=== PATIENT | female | born 1950 ===

== ENCOUNTER 2016-12-10 14:38 | Inpatient (IN) | payer MEDICARE ==
[2016-12-10 14:38] VITALS: BMI 28.7
[2016-12-10] MEDS ORDERED: Iohexol 240 (50 ml) ONE (15:36)
--- NOTE | 2016-12-10 15:38 | ED PDOC ---
HPI: Abdomen Time Seen by Provider: 12/10/16 15:09 Chief Complaint (Nursing): Abdominal Pain Chief Complaint (Provider): Abdominal Pain History Per: Patient History/Exam Limitations: no limitations Onset/Duration Of Symptoms: Hrs Current Symptoms Are (Timing): Still Present Severity: Moderate Location Of Pain/Discomfort: LLQ Quality Of Discomfort: "Pain" Associated Symptoms: denies: Fever, Chills, Nausea, Vomiting, Urinary Symptoms Exacerbating Factors: None Additional Complaint(s): Patient is a 66 year old female who was referred to ED by PMD for evaluation of severe LLQ pain. Patient reports abdominal pain that began last night, described as constant with no nausea, vomiting or diarrhea. Patient also reports 5 days og chest congestion with cough but denies fever, back pain, chills or hemoptysis. Past Medical History Reviewed: Historical Data, Nursing Documentation, Vital Signs Vital Signs: Last Vital Signs Temp 97.8 F 12/10/16 21:44 Pulse 72 12/10/16 23:56 Resp 18 12/10/16 22:00 BP 132/74 12/10/16 23:56 Pulse Ox 92 L 12/10/16 22:00 - Medical History PMH: Anemia, Asthma, CAD, Diabetes, HTN, Hypercholesterolemia - Surgical History Surgical History: Appendectomy, CABG Other surgeries: colostomy with reversal - Family History Family History: States: Unknown Family Hx - Living Arrangements Living Arrangements: With Family - Immunization History Hx Tetanus Toxoid Vaccination: Yes Hx Influenza Vaccination: Yes Hx Pneumococcal Vaccination: Yes - Home Medications Home Medications: Ambulatory Orders Medication Instructions Recorded Aspirin. 81 mg PO DAILY 04/05/13 Carvedilol. 25 mg PO BID 04/05/13 Calcium Acetate 3 cap PO TID 04/17/13 Fenofibrate [Tricor] 145 mg PO DAILY 04/17/13 Iron,Carbonyl/Ascorbic Acid [Iron 1 tab PO DAILY 04/17/13 100 with Vitamin C 250 mg-25 Mcg-1 mg-10] Pantoprazole [Protonix] 40 mg PO DAILY 04/17/13 Albuterol Sulfate [Albuterol 2 puff IH QID #1 inh 11/27/13 Sulfate Hfa] Crestor 5 mg PO DAILY 11/27/13 Humalog Mix 75/25 75 U/ml-25 U/ml 25 units SC [facility] 11/27/13 10 ml Proair Hfa 1 puff IH DAILY 11/27/13 Zolpidem 10 mg PO HS 11/27/13 humALOG 10 units SC HS 11/27/13 Benzonatate [Tessalon Perles] 100 mg PO TID #30 sgl 12/07/16 Prednisone 50 mg PO DAILY #5 tablet 12/07/16 - Allergies Allergies/Adverse Reactions: Allergies Allergy/AdvReac Type Severity Reaction Status Date / Time No Known Allergies Allergy Unverified 11/19/15 15:45 Review of Systems ROS Statement: Except As Marked, All Systems Reviewed And Found Negative Constitutional: Negative for: Fever, Chills ENT: Negative for: Ear Pain, Throat Pain Cardiovascular: Negative for: Chest Pain Respiratory: Positive for: Cough Gastrointestinal: Positive for: Abdominal Pain. Negative for: Nausea, Vomiting , Diarrhea Genitourinary Female: Negative for: Dysuria, Frequency, Hematuria Musculoskeletal: Negative for: Neck Pain, Back Pain Neurological: Negative for: Weakness, Numbness Physical Exam - Reviewed Nursing Documentation Reviewed: Yes Vital Signs Reviewed: Yes - Physical Exam Appears: Positive for: Non-toxic, No Acute Distress Skin: Positive for: Normal Color, Warm Eye Exam: Positive for: Normal appearance Neck: Positive for: Normal, Painless ROM Cardiovascular/Chest: Positive for: Regular Rate, Rhythm, Other (Surgical scars) . Negative for: Murmur Respiratory: Positive for: Other (Coarse breath sounds bilaterally ). Negative for: Decreased Breath Sounds, Wheezing, Respiratory Distress Gastrointestinal/Abdominal: Positive for: Soft, Tenderness (significant LLQ). Negative for: Distended, Guarding, Rebound Back: Positive for: Normal Inspection. Negative for: L CVA Tenderness, R CVA Tenderness Extremity: Positive for: Normal ROM. Negative for: Pedal Edema Neurologic/Psych: Positive for: Alert, Oriented. Negative for: Motor/Sensory Deficits - Laboratory Results Result Diagrams: 12/10/16 15:40 12/10/16 15:40 - ECG ECG: Positive for: Interpreted By Me, Viewed By Me ECG Rhythm: Positive for: Normal QRS, Sinus Rhythm, ST/T Changes (TWI in anterolateral leads) O2 Sat by Pulse Oximetry: 95 (RA) Pulse Ox Interpretation: Normal Medical Decision Making Medical Decision Making: Time: 15:30 Initial impression: Abdominal apian r/o diverticulitis vs. colitis vs. SBO vs. UTI and renal stone Initial plan: -- CT-abdomen -- EKG -- CMP -- Lipase -- Urine dip -- CBC -- PT/PTT -- CXR -- Morphine and Zofran 18:56 CT Scan A/P Findings FINDINGS: LOWER THORAX: Unremarkable. LIVER: Hepatic steatosis. No focal masses. No intrahepatic bile duct dilatation or perihepatic ascites. GALLBLADDER AND BILE DUCTS: Unremarkable. PANCREAS: Mildly atrophic pancreas, dilated pancreatic duct. No focal mass identified. SPLEEN: Top-normal spleen measuring 9.6 x 12.9 cm. ADRENALS: Unremarkable. No mass. KIDNEYS AND URETERS: Atrophic kidneys bilaterally. Nonobstructing calculi left kidney. VASCULATURE: Unremarkable. No aortic aneurysm. BOWEL: Ventral periumbilical hernia containing loops of small bowel without evidence of proximal obstruction or incarceration. APPENDIX: Surgical clips base of cecum consistent with prior appendectomy. PERITONEUM: Unremarkable. No free fluid. No free air. LYMPH NODES: Unremarkable. No enlarged lymph nodes. BLADDER: Unremarkable. REPRODUCTIVE: Fibroid uterus. BONES: No acute fracture. OTHER FINDINGS: Left anterior abdominal wall, rectus muscle hematoma. This measures 6.3 x 6.7 by 2.1 cm. This is contained within the rectus muscle. Inflammatory changes abdominal wall may represent a component of panniculitis. IMPRESSION: 1. Anterior abdominal wall/ rectus muscle hematoma left side only. No evidence of extension into the peritoneal cavity. 2. Midline periumbilical hernia containing nondistended or incarcerated loops of small bowel. 3. Renal calculus disease bilaterally nonobstructing left more numerous and larger than right. 4. Atrophic pancreas common dilated pancreatic duct without focal mass. Communication of results: I discussed the findings directly with the attending in the emergency department at the time of this interpretation. 1900 Discussed the case with Dr Rod who will be on consult and recommends admission for monitoring and no interventions at this time. 1909 Discussed with certified surgical first assistant to see patient in ED. Scribe Attestation: Documented by Rochelle Lai acting as a scribe for Lily Rico MD. MD [place] Attestation: All medical record entries made by the Scribe were at my direction and personally dictated by me. I have reviewed the chart and agree that the record accurately reflects my personal performance of the history, physical exam, medical decision making, and the department course for this patient. I have also personally directed, reviewed, and agree with the discharge instructions and disposition. Disposition - Clinical Impression Clinical Impression: Abdominal wall hematoma, Rectus sheath hematoma - Patient ED Disposition Is Patient to be Admitted: Yes Discussed With : Mark Levin Doctor Will See Patient In The: Hospital - Disposition Disposition Time: 19:00 Condition: FAIR - Pt Status Changed To: Hospital Disposition Of: Inpatient - Admit Certification Admit to Inpatient:: After my assessment, the patient will require hospitalization for at least two midnights. This is because of the severity of symptoms shown, intensity of services needed, and/or the medical risk in this patient being treated as an outpatient. - POA Present On Arrival: Poor Glycemic Control
[2016-12-10] MEDS: Iohexol 240 (50 ml) PO ONE ×2 (15:42→16:09)
[2016-12-10 15:54] LABS: BASO % 0.4 % (0.0-2.0); EOS % 0.3 % (0.0-4.0); HEMATOCRIT 24.8 % (34.0-47.0); LYMPH % 16.6 % (20.0-40.0); MEAN CELL VOLUME 101.7 fl (81.0-99.0); MEAN CORPUSCULAR HEMOGLOBIN 34.3 pg (27.0-31.0); MEAN CORPUSCULAR HGB CONC 33.7 g/dL (33.0-37.0); MEAN PLATELET VOLUME 9.2 fl (7.2-11.7); MONO # 0.5 K/uL (0.0-0.8); MONO % 8.1 % (0.0-10.0); NEUT # 4.5 K/uL (1.8-7.0); NEUT % 74.6 % (50.0-75.0); NRBC % 0.2 % (0.0-0.0); RED CELL DISTRIBUTION WIDTH 14.9 % (11.5-14.5); WHITE BLOOD COUNT 6.1 K/uL (4.8-10.8)
[2016-12-10 16:00] LABS: ALB/GLOB RATIO 1.1 (1.0-2.1); BILIRUBIN,TOTAL 1.1 mg/dl (0.2-1.3); CALCIUM 9.2 mg/dL (8.4-10.2); POTASSIUM 4.1 MMOL/L (3.6-5.0)
[2016-12-10 16:26] LABS: PARTIAL THROMBOPLASTIN TIME 26.4 SECONDS (23.3-32.5)
[2016-12-10] MEDS ORDERED: Sodium Chloride 0.9% 50 ML IV ONE (17:50)
[2016-12-10] MEDS ORDERED: Iodixanol 320 MG/ML 100 ML BOTTLE IV ONE (17:50)
--- NOTE | 2016-12-10 18:39 | CT ---
PROCEDURE: CT Abdomen and Pelvis with contrast HISTORY: Left lower quadrant pain. Recent onset. COMPARISON: None. TECHNIQUE: Contrast dose: 50 cc 6 50 cc Visipaque 320 Radiation dose: Total exam DLP = 914.62 mGy-cm. This CT exam was performed using one or more of the following dose reduction techniques: Automated exposure control, adjustment of the mA and/or kV according to patient size, and/or use of iterative reconstruction technique. FINDINGS: LOWER THORAX: Unremarkable. LIVER: Hepatic steatosis. No focal masses. No intrahepatic bile duct dilatation or perihepatic ascites. GALLBLADDER AND BILE DUCTS: Unremarkable. PANCREAS: Mildly atrophic pancreas, dilated pancreatic duct. No focal mass identified. SPLEEN: Top-normal spleen measuring 9.6 x 12.9 cm. ADRENALS: Unremarkable. No mass. KIDNEYS AND URETERS: Atrophic kidneys bilaterally. Nonobstructing calculi left kidney. VASCULATURE: Unremarkable. No aortic aneurysm. BOWEL: Ventral periumbilical hernia containing loops of small bowel without evidence of proximal obstruction or incarceration. APPENDIX: Surgical clips base of cecum consistent with prior appendectomy. PERITONEUM: Unremarkable. No free fluid. No free air. LYMPH NODES: Unremarkable. No enlarged lymph nodes. BLADDER: Unremarkable. REPRODUCTIVE: Fibroid uterus. BONES: No acute fracture. OTHER FINDINGS: Left anterior abdominal wall, rectus muscle hematoma. This measures 6.3 x 6.7 by 2.1 cm. This is contained within the rectus muscle. Inflammatory changes abdominal wall may represent a component of panniculitis. IMPRESSION: 1. Anterior abdominal wall/ rectus muscle hematoma left side only. No evidence of extension into the peritoneal cavity. 2. Midline periumbilical hernia containing nondistended or incarcerated loops of small bowel. 3. Renal calculus disease bilaterally nonobstructing left more numerous and larger than right. 4. Atrophic pancreas common dilated pancreatic duct without focal mass. Communication of results: I discussed the findings directly with the attending in the emergency department at the time of this interpretation.
--- NOTE | 2016-12-10 22:12 | CP.PCM.CON ---
<Martin Self - Last Filed: 12/10/16 22:00> History of Present Illness - History of Present Illness History of Present Illness: General Surgery Consult Re: Abdominal wall hematoma HPI: 66F presented to ED C/O L abdominal pain that began last night. Pain was constant and intense. She had never had this pain before. Reports she has been coughing with clear sputum x 3 days. Denies F/C, N/V/D/C, SOB, Chest pain. Denies any trauma. Pt is on TTS dialysis. She takes one baby aspirin/day, and no other oral anticoagulant. Currently she feels better with only mild pain. PMH: ESRD on HD, CAD, DM, HTN, HLD, asthma, anemia PSH: Appendectomy, CABG, colectomy, LUE AVF creation SH: No tobacco, EtOH, or street drugs. All: NKDA Meds: See MAR, ASA, no other anticoagulants Review of Systems - Review of Systems All systems: reviewed and no additional remarkable complaints except (as per HPI ) Past Patient History - Infectious Disease Hx of Infectious Diseases: None - Past Social History Smoking Status: Never Smoked - CARDIAC Hx Hypercholesterolemia: Yes Hx Hypertension: Yes - PULMONARY Hx Asthma: Yes - RENAL Hx Dialysis: Yes ([facility]) Type of Dialysis Access: left upper arm shunt Date of Last Dialysis Treatment: 12/08/16 - ENDOCRINE/METABOLIC Hx Diabetes Mellitus Type 2: Yes - HEMATOLOGICAL/ONCOLOGICAL Hx Anemia: Yes - GASTROINTESTINAL Hx Colostomy: Yes - PSYCHIATRIC Hx Substance Use: No - SURGICAL HISTORY Hx Appendectomy: Yes Hx Coronary Artery Bypass Graft: Yes Meds Allergies/Adverse Reactions: Allergies Allergy/AdvReac Type Severity Reaction Status Date / Time No Known Allergies Allergy Unverified 11/19/15 15:45 - Medications Medications: Current Medications Aspirin (Aspirin) 325 mg PO STAT STA Stop: 12/10/16 21:08 Last Admin: 12/10/16 21:16 Dose: 325 mg Physical Exam - Constitutional Appears: Non-toxic, No Acute Distress - Head Exam Head Exam: ATRAUMATIC, NORMOCEPHALIC - Eye Exam Eye Exam: EOMI. absent: Scleral icterus - ENT Exam ENT Exam: Mucous Membranes Moist Additional comments: trachea midline - Respiratory Exam Respiratory Exam: NORMAL BREATHING PATTERN. absent: Respiratory Distress - Cardiovascular Exam Cardiovascular Exam: RRR, +S1, +S2 - GI/Abdominal Exam GI & Abdominal Exam: Firm (in LLQ), Guarding (LLQ), Hernia (periumbilical and low incisional hernias), Soft, Tenderness (in LLQ). absent: Distended, Rebound , Rigid Additional comments: Midline Colectomy scar - Rectal Exam Rectal Exam: Deferred - Extremities Exam Extremities exam: Positive for: normal capillary refill. Negative for: calf tenderness - Back Exam Back exam: absent: CVA tenderness (L), CVA tenderness (R) - Neurological Exam Neurological exam: Alert, Oriented x3 - Psychiatric Exam Psychiatric exam: Normal Affect, Normal Mood - Skin Skin Exam: Dry, Warm Results - Vital Signs Recent Vital Signs: Last Vital Signs Temp 97.8 F 12/10/16 21:44 Pulse 70 12/10/16 21:44 Resp 20 12/10/16 21:44 BP 132/69 12/10/16 21:44 Pulse Ox 92 L 12/10/16 21:44 - Labs Result Diagrams: 12/10/16 15:40 12/10/16 15:40 Labs: Laboratory Results - last 24 hr 12/10/16 20:37 Troponin I 0.4420 H* - Imaging and Cardiology CT scan - abdomen Status: Image reviewed by me, Report reviewed by me Assessment & Plan - Assessment and Plan (Free Text) Assessment: 66F with L abdominal wall hematoma Plan: AM labs, Monitor H&H CCD diet Hold anticoagulants/antiplatelets Analgesia D/W Dr. Viola Self PGY3 <Sebas Rod - Last Filed: 12/11/16 10:24> History of Present Illness - History of Present Illness History of Present Illness: Patient was seen and examined at the bedside. Agree with resident's note above. Meds - Medications Medications: Current Medications Albuterol/Ipratropium (Duoneb 3 Mg/0.5 Mg (3 Ml) Ud) 3 ml INH RQID [facility] Last Admin: 12/11/16 07:58 Dose: 3 ml Atorvastatin Calcium (Lipitor) 10 mg PO DAILY [facility] Last Admin: 12/11/16 09:55 Dose: 10 mg Calcium Acetate (Phoslo) 667 mg PO WM [facility] Last Admin: 12/11/16 08:30 Dose: 667 mg Carvedilol (Coreg) 25 mg PO BID [facility] Last Admin: 12/11/16 09:55 Dose: Not Given Docusate Sodium (Colace) 100 mg PO BID [facility] Last Admin: 12/11/16 09:55 Dose: 100 mg Fenofibrate (Tricor) 48 mg PO DAILY [facility] Last Admin: 12/11/16 10:00 Dose: 48 mg Insulin Human Lispro (Humalog) 10 units SC [facility] Last Admin: 12/10/16 23:53 Dose: 10 u Insulin Human Regular (Humulin R) 0 units SC [facility] PRN Reason: Protocol Insulin Lispro Protam/Lispro Human (Humalog Mix 75/25) 25 units SC BID@0730, 2200 [facility] Last Admin: 12/11/16 06:35 Dose: 25 units Morphine Sulfate (Morphine) 2 mg IVP Q4 PRN PRN Reason: Pain, moderate (4-7) Morphine Sulfate (Morphine) 4 mg IVP Q4 PRN PRN Reason: Pain, severe (8-10) Ondansetron HCl (Zofran Inj) 4 mg IVP Q4 PRN PRN Reason: Nausea/Vomiting Oxycodone/Acetaminophen (Percocet 5/325 Mg Tab) 1 tab PO Q4 PRN PRN Reason: Pain, moderate (4-7) Stop: 12/14/16 09:14 Pantoprazole Sodium (Protonix Ec Tab) 40 mg PO DAILY [facility] Last Admin: 12/11/16 10:00 Dose: 40 mg Promethazine HCl (Phenergan Syrup) 12.5 mg PO Q4 [facility] Last Admin: 12/11/16 10:00 Dose: 12.5 mg Zolpidem Tartrate (Ambien) 5 mg PO [facility] Last Admin: 12/10/16 23:58 Dose: 5 mg Results - Vital Signs Recent Vital Signs: Last Vital Signs Temp 97.8 F 12/11/16 09:00 Pulse 75 12/11/16 09:00 Resp 20 12/11/16 09:00 BP 153/64 H 12/11/16 09:00 Pulse Ox 94 L 12/11/16 09:00 - Labs Result Diagrams: 12/11/16 05:45 12/11/16 05:45 Labs: Laboratory Results - last 24 hr 12/10/16 12/10/16 12/11/16 20:37 22:20 05:27 WBC RBC Hgb Hct MCV MCH MCHC RDW Plt Count Sodium Potassium Chloride Carbon Dioxide Anion Gap BUN Creatinine Est GFR ( Amer) Est GFR (Non-Af Amer) POC Glucose (mg/dL) 188 H 343 H Random Glucose Calcium Troponin I 0.4420 H* Triglycerides Cholesterol LDL Cholesterol Direct HDL Cholesterol 12/11/16 05:45 WBC 6.8 RBC 2.60 L Hgb 8.8 L Hct 26.7 L MCV 102.7 H MCH 34.1 H MCHC 33.2 RDW 14.9 H Plt Count 136 Sodium 138 Potassium 4.9 Chloride 92 L Carbon Dioxide 28 Anion Gap 23 H BUN 66 H Creatinine 7.8 H* Est GFR ( Amer) 6 Est GFR (Non-Af Amer) 5 POC Glucose (mg/dL) Random Glucose 307 H Calcium 9.0 Troponin I 0.3320 H* Triglycerides 98 Cholesterol 93 LDL Cholesterol Direct 35 HDL Cholesterol 31 - Imaging and Cardiology CT scan - abdomen Status: Image reviewed by me, Report reviewed by me Assessment & Plan - Assessment and Plan (Free Text) Assessment: 66 y.o. female with left rectus hematoma Plan: - Continue diet - Pain control - Monitor Hb/Hct - Hold anticoagulation - No general surgery intervention at present time - Will follow
[2016-12-10] MEDS ORDERED: HUMALOG 10 UNIT SC SCH (22:45)
[2016-12-10] MEDS ORDERED: ZOLPIDEM 10 MG PO SCH (22:45)
[2016-12-10] MEDS: Insulin Lispro (humaLOG) 100 Units/ml Inj SC SCH (23:53)
[2016-12-11] MEDS: Albuterol-Ipratrop 3 mg / 0.5 (3 ml) UD INH SCH ×5 (01:01→20:10)
[2016-12-11 06:26] LABS: HEMATOCRIT 26.7 % (34.0-47.0); MEAN CELL VOLUME 102.7 fl (81.0-99.0); MEAN CORPUSCULAR HEMOGLOBIN 34.1 pg (27.0-31.0); MEAN CORPUSCULAR HGB CONC 33.2 g/dL (33.0-37.0); RED CELL DISTRIBUTION WIDTH 14.9 % (11.5-14.5); WHITE BLOOD COUNT 6.8 K/uL (4.8-10.8)
[2016-12-11] MEDS: Insulin Lispro Mix 75/25 100 units/ml (HumaLog) 10ml SC SCH ×2 (06:35→22:05)
[2016-12-11 06:36] LABS: POTASSIUM 4.9 MMOL/L (3.6-5.0)
[2016-12-11 06:59] LABS: TROPONIN I 0.332 ng/mL (0.00-0.120)
--- NOTE | 2016-12-11 08:37 | CP.PCM.PN ---
<Ira Miles - Last Filed: 12/11/16 08:33> Subjective - Date & Time of Evaluation Date of Evaluation: 12/11/16 Time of Evaluation: 08:33 - Subjective Subjective: General Surgery - Dr. Rod Pt [place]. Pt states her abdominal pain is improved. No N/V, F/C. She still has some cough, no SOB. Objective - Vital Signs/Intake and Output Vital Signs (last 24 hours): Temp Pulse Resp BP Pulse Ox 97.8 F 71 18 152/73 H 96 12/11/16 05:00 12/11/16 05:00 12/11/16 05:00 12/11/16 05:00 12/11/16 05:00 - Medications Medications: Current Medications Albuterol/Ipratropium (Duoneb 3 Mg/0.5 Mg (3 Ml) Ud) 3 ml INH RQID [facility] Last Admin: 12/11/16 07:58 Dose: 3 ml Atorvastatin Calcium (Lipitor) 10 mg PO DAILY [facility] Calcium Acetate (Phoslo) 667 mg PO WM [facility] Carvedilol (Coreg) 25 mg PO BID [facility] Last Admin: 12/10/16 23:56 Dose: 25 mg Docusate Sodium (Colace) 100 mg PO BID [facility] Fenofibrate (Tricor) 48 mg PO DAILY [facility] Insulin Human Lispro (Humalog) 10 units SC [facility] Last Admin: 12/10/16 23:53 Dose: 10 u Insulin Human Regular (Humulin R) 0 units SC [facility] PRN Reason: Protocol Insulin Lispro Protam/Lispro Human (Humalog Mix 75/25) 25 units SC BID@0730, 2200 [facility] Last Admin: 12/11/16 06:35 Dose: 25 units Morphine Sulfate (Morphine) 2 mg IVP Q4 PRN PRN Reason: Pain, moderate (4-7) Morphine Sulfate (Morphine) 4 mg IVP Q4 PRN PRN Reason: Pain, severe (8-10) Ondansetron HCl (Zofran Inj) 4 mg IVP Q4 PRN PRN Reason: Nausea/Vomiting Pantoprazole Sodium (Protonix Ec Tab) 40 mg PO DAILY [facility] Promethazine HCl (Phenergan Syrup) 12.5 mg PO Q4 [facility] Zolpidem Tartrate (Ambien) 5 mg PO HS [facility] Last Admin: 12/10/16 23:58 Dose: 5 mg - Labs Labs: 12/11/16 05:45 12/11/16 05:45 PT 13.5 SECONDS (9.6-11.2) H 12/10/16 15:50 INR 1.30 (0.92-1.08) H 12/10/16 15:50 APTT 26.4 SECONDS (23.3-32.5) 12/10/16 15:50 - Constitutional Appears: No Acute Distress - Head Exam Head Exam: ATRAUMATIC, NORMOCEPHALIC - Respiratory Exam Respiratory Exam: NORMAL BREATHING PATTERN. absent: Respiratory Distress - GI/Abdominal Exam GI & Abdominal Exam: Soft, Tenderness (mild ttp L mid abdomen). absent: Distended, Firm, Guarding, Rebound - Neurological Exam Neurological Exam: Alert, Oriented x3 - Psychiatric Exam Psychiatric exam: Normal Affect, Normal Mood - Skin Skin Exam: Dry, Intact Assessment and Plan - Assessment and Plan (Free Text) Assessment: 66F with L abdominal wall hematoma Plan: -Hgb stable this morning, 8.8 from 8.4 yest. -Continue to hold anticoagulants/antiplatelets -No plans for surgical intervention -Dialysis today -Medical management DW Dr Viola Miles PGY2 <Sebas Rod - Last Filed: 12/11/16 10:27> Subjective - Date & Time of Evaluation Date of Evaluation: 12/11/16 Time of Evaluation: 09:50 - Subjective Subjective: Patient was seen and examined at the bedside. Agree with resident's note above Objective - Vital Signs/Intake and Output Vital Signs (last 24 hours): Temp Pulse Resp BP Pulse Ox 97.8 F 75 20 153/64 H 94 L 12/11/16 09:00 12/11/16 09:00 12/11/16 09:00 12/11/16 09:00 12/11/16 09:00 - Medications Medications: Current Medications Albuterol/Ipratropium (Duoneb 3 Mg/0.5 Mg (3 Ml) Ud) 3 ml INH RQID [facility] Last Admin: 12/11/16 07:58 Dose: 3 ml Atorvastatin Calcium (Lipitor) 10 mg PO DAILY [facility] Last Admin: 12/11/16 09:55 Dose: 10 mg Calcium Acetate (Phoslo) 667 mg PO WM [facility] Last Admin: 12/11/16 08:30 Dose: 667 mg Carvedilol (Coreg) 25 mg PO BID [facility] Last Admin: 12/11/16 09:55 Dose: Not Given Docusate Sodium (Colace) 100 mg PO BID [facility] Last Admin: 12/11/16 09:55 Dose: 100 mg Fenofibrate (Tricor) 48 mg PO DAILY [facility] Last Admin: 12/11/16 10:00 Dose: 48 mg Insulin Human Lispro (Humalog) 10 units SC [facility] Last Admin: 12/10/16 23:53 Dose: 10 u Insulin Human Regular (Humulin R) 0 units SC [facility] PRN Reason: Protocol Insulin Lispro Protam/Lispro Human (Humalog Mix 75/25) 25 units SC BID@0730, 2200 [facility] Last Admin: 12/11/16 06:35 Dose: 25 units Morphine Sulfate (Morphine) 2 mg IVP Q4 PRN PRN Reason: Pain, moderate (4-7) Morphine Sulfate (Morphine) 4 mg IVP Q4 PRN PRN Reason: Pain, severe (8-10) Ondansetron HCl (Zofran Inj) 4 mg IVP Q4 PRN PRN Reason: Nausea/Vomiting Oxycodone/Acetaminophen (Percocet 5/325 Mg Tab) 1 tab PO Q4 PRN PRN Reason: Pain, moderate (4-7) Stop: 12/14/16 09:14 Pantoprazole Sodium (Protonix Ec Tab) 40 mg PO DAILY [facility] Last Admin: 12/11/16 10:00 Dose: 40 mg Promethazine HCl (Phenergan Syrup) 12.5 mg PO Q4 [facility] Last Admin: 12/11/16 10:00 Dose: 12.5 mg Zolpidem Tartrate (Ambien) 5 mg PO [facility] Last Admin: 12/10/16 23:58 Dose: 5 mg - Labs Labs: 12/11/16 05:45 12/11/16 05:45 PT 13.5 SECONDS (9.6-11.2) H 12/10/16 15:50 INR 1.30 (0.92-1.08) H 12/10/16 15:50 APTT 26.4 SECONDS (23.3-32.5) 12/10/16 15:50
--- NOTE | 2016-12-11 08:48 | HP ---
The patient is a 66-year-old female who was admitted via the Emergency Room after she showed up in th e office complaining of left lower abdominal pain for 2 days prior to presentation. She indicated th at she was not able to sleep because of severe abdominal pain. She had been to [facility] Room indicating that she was discharged, but still continues to have pain. PAST MEDICAL HISTORY: Remarkable for end-stage renal disease requiring hemodialysis, asthma, coronar y artery disease, hypertension and diabetes mellitus. FAMILY HISTORY: Nonrevealing. SOCIAL HISTORY: She does not smoke or drink and lives at home with her children. REVIEW OF SYSTEMS: Remarkable for occasional swelling of the legs, shortness of breath with wheezing . MEDICATIONS: As per medication reconciliation sheet. PHYSICAL EXAMINATION: GENERAL: The patient is alert and oriented, appears to be in moderate distress because of abdominal pain. VITAL SIGNS: Blood pressure 152/73, pulse of 71, respiratory rate 18. She is afebrile. O2 sat 96% on room air. SKIN: Shows fair turgor. HEENT: Pupils equal, reactive to light and accommodation. Mouth shows fair hygiene. NECK: JVP flat. LUNGS: Fair aeration with mild wheezing and a few basilar rales. HEART: S1, S2. ABDOMEN: Severe left lower quadrant tenderness with edema and rebound. No organomegaly appreciated. EXTREMITIES: Shows 1+ pitting pedal edema. CENTRAL NERVOUS SYSTEM: Grossly intact. RECTAL AND GENITALIA: Deferred. LABORATORY DATA: Remarkable for WBC of 6.1, hemoglobin 8.4, platelet count 133,000. PT 13.5, INR 1. 3. Sodium 137, potassium 4.1, BUN of 57, creatinine 6.5. Troponin 0.4420. CT scan of abdomen and pelvis is remarkable for anterior abdominal wall rectus muscle hematoma, left side. No evidence of extension into the peritoneal cavity. Midline periumbilical hernia containing nondistended or incarcerated loops of small bowel. Renal calculus disease bilaterally, nonobstructiv e. Atrophic pancreas, common dilated pancreatic duct without focal mass. Chest x-ray official repor t is pending. Electrocardiogram done; official report is also pending. IMPRESSION: Left-sided rectus sheath hematoma with severe abdominal pain. This is probably secondar y to subcutaneous heparin injections during dialysis. Diabetes mellitus with hyperglycemia, poorly c ontrolled; asthma with mild exacerbation, hypertension. Coronary artery disease with elevated tropon in. This is probably secondary to renal failure, but one has to rule out acute coronary syndrome. PLAN: Nephrology evaluation for dialysis. Hold all anticoagulation for now. Monitor H and H. Card iac evaluation due to elevated troponin to rule out acute coronary syndrome. Surgical evaluation reg arding rectus sheath hematoma. Will monitor H and H. If clinically stable and cleared by all consul tants, will probably discharge home in 24-48 hours and follow up as an outpatient. Mark Levin MD cc: 62 TT: 12/11/2016 08:47:41 mn
[2016-12-11] MEDS ORDERED: CRESTOR 5 MG PO SCH (09:00)
[2016-12-11] MEDS ORDERED: INSULIN LISPRO SC SCH (09:00)
[2016-12-11] MEDS ORDERED: INSULIN LISPRO PROTAMINE SC SCH (09:00)
[2016-12-11] MEDS ORDERED: [UNRECOGNIZED DRUG - OTHER] SC SCH (09:00)
[2016-12-11] MEDS ORDERED: CALCIUM ACETATE PO SCH (09:00)
[2016-12-11] MEDS ORDERED: CARVEDILOL 25 MG PO SCH (09:00)
[2016-12-11] MEDS ORDERED: Oxycodone/Acetaminophen 5/325 mg Tab PO PRN (09:13)
[2016-12-11] MEDS: Pantoprazole 40 mg EC Tab PO SCH (10:00)
[2016-12-11] MEDS: Promethazine 12.5 mg/10 ml Syrup PO SCH ×4 (10:00→21:55)
--- NOTE | 2016-12-11 10:23 | RAD ---
PROCEDURE: CHEST RADIOGRAPH, 1 VIEW HISTORY: congestion COMPARISON: None available. FINDINGS: LUNGS: Clear. PLEURA: No pneumothorax or pleural fluid seen. CARDIOVASCULAR: Cardiomegaly. No evidence of acute, significant cardiovascular disease. OSSEOUS STRUCTURES: No significant abnormalities. VISUALIZED UPPER ABDOMEN: Normal. OTHER FINDINGS: None. IMPRESSION: No active disease.
--- NOTE | 2016-12-11 10:52 | CP.PCM.CON ---
History of Present Illness - History of Present Illness History of Present Illness: pt seen and examined, full consult is dictated #[id number] 1. esrd, continue hd 3 x a week tts 2. LLQ pain, 3. htn 4. dm 5. cad 6. anemia 7. ant. abd wall / rectus muscle hematoma for hd today consent obtained from pt Past Patient History - Infectious Disease Hx of Infectious Diseases: None - Past Medical History & Family History Past Medical History?: Yes - Past Social History Smoking Status: Never Smoked - CARDIAC Hx Cardiac Disorders: Yes - PULMONARY Hx Respiratory Disorders: Yes - NEUROLOGICAL Hx Neurological Disorder: No - HEENT Hx HEENT Problems: No - RENAL Hx Chronic Kidney Disease: Yes - ENDOCRINE/METABOLIC Hx Endocrine Disorders: Yes - HEMATOLOGICAL/ONCOLOGICAL Hx Blood Disorders: No - INTEGUMENTARY Hx Dermatological Problems: No - MUSCULOSKELETAL/RHEUMATOLOGICAL Hx Musculoskeletal Disorders: No - GASTROINTESTINAL Hx Colostomy: Yes - GENITOURINARY/GYNECOLOGICAL Hx Genitourinary Disorders: No - PSYCHIATRIC Hx Psychophysiologic Disorder: No - SURGICAL HISTORY Hx Appendectomy: Yes Hx Coronary Artery Bypass Graft: Yes - ANESTHESIA Hx Anesthesia: Yes Hx Anesthesia Reactions: No Meds Allergies/Adverse Reactions: Allergies Allergy/AdvReac Type Severity Reaction Status Date / Time No Known Allergies Allergy Unverified 11/19/15 15:45 - Medications Medications: Current Medications Albuterol/Ipratropium (Duoneb 3 Mg/0.5 Mg (3 Ml) Ud) 3 ml INH RQID [facility] Last Admin: 12/11/16 07:58 Dose: 3 ml Atorvastatin Calcium (Lipitor) 10 mg PO DAILY [facility] Last Admin: 12/11/16 09:55 Dose: 10 mg Calcium Acetate (Phoslo) 667 mg PO WM [facility] Last Admin: 12/11/16 08:30 Dose: 667 mg Carvedilol (Coreg) 25 mg PO BID [facility] Last Admin: 12/11/16 09:55 Dose: Not Given Docusate Sodium (Colace) 100 mg PO BID [facility] Last Admin: 12/11/16 09:55 Dose: 100 mg Fenofibrate (Tricor) 48 mg PO DAILY [facility] Last Admin: 12/11/16 10:00 Dose: 48 mg Insulin Human Lispro (Humalog) 10 units SC [facility] Last Admin: 12/10/16 23:53 Dose: 10 u Insulin Human Regular (Humulin R) 0 units SC [facility] PRN Reason: Protocol Insulin Lispro Protam/Lispro Human (Humalog Mix 75/25) 25 units SC BID@0730, 2200 [facility] Last Admin: 12/11/16 06:35 Dose: 25 units Morphine Sulfate (Morphine) 2 mg IVP Q4 PRN PRN Reason: Pain, moderate (4-7) Morphine Sulfate (Morphine) 4 mg IVP Q4 PRN PRN Reason: Pain, severe (8-10) Ondansetron HCl (Zofran Inj) 4 mg IVP Q4 PRN PRN Reason: Nausea/Vomiting Oxycodone/Acetaminophen (Percocet 5/325 Mg Tab) 1 tab PO Q4 PRN PRN Reason: Pain, moderate (4-7) Stop: 12/14/16 09:14 Pantoprazole Sodium (Protonix Ec Tab) 40 mg PO DAILY [facility] Last Admin: 12/11/16 10:00 Dose: 40 mg Promethazine HCl (Phenergan Syrup) 12.5 mg PO Q4 [facility] Last Admin: 12/11/16 10:00 Dose: 12.5 mg Zolpidem Tartrate (Ambien) 5 mg PO HS [facility] Last Admin: 12/10/16 23:58 Dose: 5 mg Results - Vital Signs Recent Vital Signs: Last Vital Signs Temp 97.8 F 12/11/16 09:00 Pulse 75 12/11/16 09:00 Resp 20 12/11/16 09:00 BP 153/64 H 12/11/16 09:00 Pulse Ox 94 L 12/11/16 09:00 - Labs Result Diagrams: 12/11/16 05:45 12/11/16 05:45 Labs: Laboratory Results - last 24 hr 12/10/16 12/10/16 12/11/16 20:37 22:20 05:27 WBC RBC Hgb Hct MCV MCH MCHC RDW Plt Count Sodium Potassium Chloride Carbon Dioxide Anion Gap BUN Creatinine Est GFR ( Amer) Est GFR (Non-Af Amer) POC Glucose (mg/dL) 188 H 343 H Random Glucose Calcium Troponin I 0.4420 H* Triglycerides Cholesterol LDL Cholesterol Direct HDL Cholesterol 12/11/16 05:45 WBC 6.8 RBC 2.60 L Hgb 8.8 L Hct 26.7 L MCV 102.7 H MCH 34.1 H MCHC 33.2 RDW 14.9 H Plt Count 136 Sodium 138 Potassium 4.9 Chloride 92 L Carbon Dioxide 28 Anion Gap 23 H BUN 66 H Creatinine 7.8 H* Est GFR ( Amer) 6 Est GFR (Non-Af Amer) 5 POC Glucose (mg/dL) Random Glucose 307 H Calcium 9.0 Troponin I 0.3320 H* Triglycerides 98 Cholesterol 93 LDL Cholesterol Direct 35 HDL Cholesterol 31
[2016-12-11] MEDS: Insulin Regular 100 units/ml SC SCH ×3 (12:18→22:06)
[2016-12-11] MEDS ORDERED: EPOETIN ALFA 10,000 UNIT/ML ML IV ONE (14:00)
[2016-12-11] MEDS ORDERED: Doxercalciferol 4 mcg/2 ml Inj IV ONE (14:00)
--- NOTE | 2016-12-11 20:17 | CARD ---
APPROVED REPORT EKG Measurement Heart [id number] <Conclusion> Normal sinus rhythm ST & T wave abnormality, consider anterolateral ischemia Abnormal ECG
--- NOTE | 2016-12-11 20:27 | CARD ---
APPROVED REPORT EKG Measurement Heart [id number] MI [id number] [id number] <Conclusion> Normal sinus rhythm ST & T wave abnormality, consider anterolateral ischemia Abnormal ECG
[2016-12-11] MEDS: Insulin Lispro (humaLOG) 100 Units/ml Inj SC SCH (22:04)
--- NOTE | 2016-12-11 22:57 | CON ---
DATE: 12/11/2016 The patient is located in room 417, bed 2. Requested by Dr. Mark Levin. REASON FOR RENAL CONSULTATION: End-stage renal disease, for continuation of hemodialysis. The patient is located in room 417, bed 2. The patient is a 66-year-old very pleasant elderly female with a past medical history signif icant for diabetes for 35 years, hypertension for 15 years, end-stage renal disease on hemodialysis f or 5 years, and coronary artery disease status post CABG in 2001, who was admitted with the chief com plaints of cough for 5 days, and also associated with shortness of breath. Denies any expectoration; mostly dry cough, and also complains of left lower quadrant pain for 2 days. Denies any fever. Den ies any dysuria or frequency. Denies any swelling of the legs. Denies any nausea, vomiting, or diar vanessa. The pain in the abdomen is dull aching pain. No radiation of the pain. Denies any trauma. PAST MEDICAL HISTORY: Significant for diabetes for about 35 years, hypertension for 15 years, and c oronary artery disease, end-stage renal disease on hemodialysis for 5 years. PAST SURGICAL HISTORY: Status post CABG in 2001, and colitis, and status post abdominal surger y and also left upper extremity AV graft. ALLERGIES: No known drug allergies. SOCIAL HISTORY: No smoking, no alcohol, no drugs. CURRENT MEDICATIONS: Include as follows: Ambien 5 mg at bedtime, and Colace 100 mg b.i.d., Coreg 25 mg p.o. b.i.d., and DuoNeb inhaler q.i.d., and Humalog 10 units subQ at bedtime, and Humalog mix 75/ 25 as 25 units b.i.d., and regular insulin for sliding scale, and Lipitor 10 mg p.o. daily, and morph ine sulfate 2 mg IV q. 4 hours p.r.n., and Percocet 1 tablet q. 4 hours p.r.n., and Phenergan syrup 1 2.5 mg p.o. q. 4 hours, and PhosLo 667 mg p.o. with meals, and Protonix 40 mg p.o. daily, Tricor 48 m g p.o. daily, and Zofran 4 mg IV q. 4 hours. FAMILY HISTORY: The patient is , and she has 3 children. Father at age 63 due to c oronary artery disease, and mother at age 81; suffered with colon cancer, and she has 3 children . REVIEW OF THE SYSTEMS: Significant for cough, and also left lower quadrant pain, and shortness of br eath. All other review of systems are reviewed and are negative. VITAL SIGNS AND PHYSICAL EXAMINATION: As follows: Blood pressure this morning 153/64, pulse 75, res piration 20, temperature 97.8, saturation 94-98%. Height 5 feet 1 inch, and weight is 151 pounds. HENT AND PHYSICAL EXAMINATION: The patient is a 78-year-old elderly female, moderately buil t, moderately nourished, not in acute distress. HENT: Pupils normal, reactive to light and accommodation. Conjunctivae pink, sclerae are anicteric. Tongue is moist. Trachea is midline. No thyroid enlargement. LUNGS: Symmetric on both sides. Bilateral breath sounds present. No crackles. CARDIOVASCULAR SYSTEM: [place] in the 5th intercostal space midclavicular line. S1 and S2 audible. No murmur or gallop. The patient has a midsternal scar present from the previous CABG. ABDOMEN: The patient has midline scar present from the previous surgery. Abdomen is soft, mild left lower quadrant tenderness. No guarding, no rigidity. Bowel sounds present. No hepatosplenomegaly. CENTRAL NERVOUS SYSTEM: The patient is alert, awake, oriented x 3, nonfocal on examination. Cranial nerves II-XII grossly intact. Sensory and motor system is within normal limits. EXTREMITIES: No cyanosis, no clubbing, no edema. LABORATORY DATA: Include as follows as of 12/10/2016: WBC 6.1, hemoglobin 8.4, hematocrit is 24.8, platelets 133. The PT 13.5, PTT 26.4. Sodium 137, potassium 4.1, chloride 92, CO2 of 28, BUN 57, cr eatinine 6.5, glucose 282, calcium 9.2, total bili 1.1. AST 38, ALT 20, alkaline phos is 128, total protein 7.0, albumin 3.6, lipase 241. Troponin 0.44, and 0.33, and 0.287. OTHER LABORATORY DATA: As of 12/11/2016: WBC 6.8, hemoglobin 8.8, hematocrit is 26.7, MCV 102.7, an d platelets 136. Sodium 138, potassium 4.9, chloride 92, CO2 of 28, BUN 66, creatinine 7.8, glucose 343, and calcium 9.0, cholesterol 93, and triglycerides 98, and LDL 35, HDL is 31. OTHER LABORATORY DATA: CT of the abdomen and pelvis as of 12/10/2016: Lower thorax unremarkable, an d left anterior abdominal wall rectus muscle hematoma. This measures 6.3 x 6.7 x 2.1. This is conta ined within the rectus muscle. Inflammatory changes in abdominal wall may represent a component of p anniculitis, atrophic pancreas, common dilated pancreatic duct without focal mass, ventral periumbili [place] hernia containing loops of small bowel without evidence of proximal obstruction or incarceration, and also fibroid uterus. In summary, the patient is about 66-year-old elderly female with hypertension, diabetes, cor onary artery disease status post CABG, end-stage renal disease, was admitted with a dry cough and christopher rtness of breath, and also left lower quadrant pain, and CT abdomen is positive for the rectus muscle hematoma on the left side. 1. End-stage renal disease. Continue hemodialysis 3 times a week, Saturday, , Saturday. 2. Anemia secondary to renal failure. Rule out iron deficiency, rule out B12, folic acid deficiency. 3. Hypertension. Blood pressure is stable. Continue her current medications, Coreg. 4. Hyperlipidemia. Continue Tricor and Lipitor. Will schedule for hemodialysis today and try to ult rafiltrate as much as she can tolerate, 2-3 L. Consent obtained from the patient for the hemodialysis. Discussed with the nurse in rounds. Will fo llow with you. Thank you for allowing me to participate in your patient's care, and no heparin during dialysis, and continue PhosLo, and also will check phosphorus, and will check B12, folic acid, iron, TIBC, ferritin with the next blood draw. Michele Carrasco MD cc: 165 TT: 12/11/2016 22:56:39 Confirmation # [id number] Dictation # [id number]
[2016-12-12] MEDS: Promethazine 12.5 mg/10 ml Syrup PO SCH ×3 (01:00→09:01)
[2016-12-12 05:20] VITALS: RESP 18
[2016-12-12] MEDS: Insulin Lispro Mix 75/25 100 units/ml (HumaLog) 10ml SC SCH (06:40)
[2016-12-12] MEDS: Insulin Regular 100 units/ml SC SCH ×2 (06:41→12:23)
[2016-12-12 07:03] LABS: HEMATOCRIT 25.2 % (34.0-47.0); MEAN CELL VOLUME 102.9 fl (81.0-99.0); MEAN CORPUSCULAR HEMOGLOBIN 34.3 pg (27.0-31.0); MEAN CORPUSCULAR HGB CONC 33.3 g/dL (33.0-37.0); WHITE BLOOD COUNT 6.2 K/uL (4.8-10.8)
[2016-12-12] MEDS: Albuterol-Ipratrop 3 mg / 0.5 (3 ml) UD INH SCH ×2 (07:36→11:40)
--- NOTE | 2016-12-12 08:01 | CP.PCM.PN ---
<Da Chaudhry - Last Filed: 12/12/16 07:59> Subjective - Date & Time of Evaluation Date of Evaluation: 12/12/16 Time of Evaluation: 07:40 - Subjective Subjective: General Surgery - Dr. Rod Pt [place]. Pt states her abdominal pain continues to improve. No N/V, F/ C. No cough, no SOB. Objective - Vital Signs/Intake and Output Vital Signs (last 24 hours): Temp Pulse Resp BP Pulse Ox 97.6 F 76 18 129/67 92 L 12/12/16 05:19 12/12/16 05:19 12/12/16 05:19 12/12/16 05:19 12/12/16 05:19 - Medications Medications: Current Medications Albuterol/Ipratropium (Duoneb 3 Mg/0.5 Mg (3 Ml) Ud) 3 ml INH RQID [facility] Last Admin: 12/12/16 07:36 Dose: 3 ml Atorvastatin Calcium (Lipitor) 10 mg PO DAILY [facility] Last Admin: 12/11/16 09:55 Dose: 10 mg Calcium Acetate (Phoslo) 667 mg PO WM [facility] Last Admin: 12/12/16 06:38 Dose: 667 mg Carvedilol (Coreg) 25 mg PO BID [facility] Last Admin: 12/11/16 17:05 Dose: Not Given Docusate Sodium (Colace) 100 mg PO BID [facility] Last Admin: 12/11/16 17:06 Dose: 100 mg Fenofibrate (Tricor) 48 mg PO DAILY [facility] Last Admin: 12/11/16 10:00 Dose: 48 mg Insulin Human Lispro (Humalog) 10 units SC HS [facility] Last Admin: 12/11/16 22:04 Dose: 10 u Insulin Human Regular (Humulin R) 0 units SC ACHS [facility] PRN Reason: Protocol Last Admin: 12/12/16 06:41 Dose: 2 units Insulin Lispro Protam/Lispro Human (Humalog Mix 75/25) 25 units SC BID@0730, 2200 [facility] Last Admin: 12/12/16 06:40 Dose: 25 units Morphine Sulfate (Morphine) 2 mg IVP Q4 PRN PRN Reason: Pain, moderate (4-7) Morphine Sulfate (Morphine) 4 mg IVP Q4 PRN PRN Reason: Pain, severe (8-10) Ondansetron HCl (Zofran Inj) 4 mg IVP Q4 PRN PRN Reason: Nausea/Vomiting Oxycodone/Acetaminophen (Percocet 5/325 Mg Tab) 1 tab PO Q4 PRN PRN Reason: Pain, moderate (4-7) Stop: 12/14/16 09:14 Pantoprazole Sodium (Protonix Ec Tab) 40 mg PO DAILY [facility] Last Admin: 12/11/16 10:00 Dose: 40 mg Promethazine HCl (Phenergan Syrup) 12.5 mg PO Q4 [facility] Last Admin: 12/12/16 05:43 Dose: 12.5 mg Zolpidem Tartrate (Ambien) 5 mg PO HS [facility] Last Admin: 12/11/16 21:55 Dose: 5 mg - Labs Labs: 12/12/16 05:55 12/11/16 05:45 PT 13.5 SECONDS (9.6-11.2) H 12/10/16 15:50 INR 1.30 (0.92-1.08) H 12/10/16 15:50 APTT 26.4 SECONDS (23.3-32.5) 12/10/16 15:50 - Constitutional Appears: Well, Non-toxic, No Acute Distress - Head Exam Head Exam: ATRAUMATIC, NORMAL INSPECTION - Respiratory Exam Respiratory Exam: NORMAL BREATHING PATTERN. absent: Chest Wall Tenderness, Decreased Breath Sounds - GI/Abdominal Exam GI & Abdominal Exam: Soft, Tenderness (minor ttp L mid abdomen). absent: Distended, Firm, Guarding, Rigid, Rebound - Skin Skin Exam: Dry, Intact, Warm Assessment and Plan - Assessment and Plan (Free Text) Assessment: 66F with L abdominal wall hematoma Plan: -Hgb stable this morning, 8.4 from 8.8 yest. -Continue to hold anticoagulants/antiplatelets -No plans for surgical intervention -Medical management D/W Dr Rod <Sebas Rod - Last Filed: 12/12/16 10:25> Subjective - Date & Time of Evaluation Date of Evaluation: 12/12/16 Time of Evaluation: 09:45 - Subjective Subjective: Patient was seen and examined at the bedside. Agree with resident's note above Objective - Vital Signs/Intake and Output Vital Signs (last 24 hours): Temp Pulse Resp BP Pulse Ox 98.5 F 74 18 125/53 L 100 12/12/16 09:00 12/12/16 09:02 12/12/16 09:00 12/12/16 09:02 12/12/16 09:00 - Medications Medications: Current Medications Albuterol/Ipratropium (Duoneb 3 Mg/0.5 Mg (3 Ml) Ud) 3 ml INH RQID [facility] Last Admin: 12/12/16 07:36 Dose: 3 ml Atorvastatin Calcium (Lipitor) 10 mg PO DAILY [facility] Last Admin: 12/12/16 09:01 Dose: 10 mg Calcium Acetate (Phoslo) 667 mg PO WM [facility] Last Admin: 12/12/16 06:38 Dose: 667 mg Carvedilol (Coreg) 25 mg PO BID [facility] Last Admin: 12/12/16 09:02 Dose: 25 mg Docusate Sodium (Colace) 100 mg PO BID [facility] Last Admin: 12/12/16 09:01 Dose: 100 mg Fenofibrate (Tricor) 48 mg PO DAILY [facility] Last Admin: 12/12/16 09:02 Dose: 48 mg Insulin Human Lispro (Humalog) 10 units SC [facility] Last Admin: 12/11/16 22:04 Dose: 10 u Insulin Human Regular (Humulin R) 0 units SC [facility] PRN Reason: Protocol Last Admin: 12/12/16 06:41 Dose: 2 units Insulin Lispro Protam/Lispro Human (Humalog Mix 75/25) 25 units SC BID@0730, 2200 [facility] Last Admin: 12/12/16 06:40 Dose: 25 units Morphine Sulfate (Morphine) 2 mg IVP Q4 PRN PRN Reason: Pain, moderate (4-7) Morphine Sulfate (Morphine) 4 mg IVP Q4 PRN PRN Reason: Pain, severe (8-10) Ondansetron HCl (Zofran Inj) 4 mg IVP Q4 PRN PRN Reason: Nausea/Vomiting Oxycodone/Acetaminophen (Percocet 5/325 Mg Tab) 1 tab PO Q4 PRN PRN Reason: Pain, moderate (4-7) Stop: 12/14/16 09:14 Pantoprazole Sodium (Protonix Ec Tab) 40 mg PO DAILY [facility] Last Admin: 12/12/16 09:01 Dose: 40 mg Promethazine HCl (Phenergan Syrup) 12.5 mg PO Q4 [facility] Last Admin: 12/12/16 09:01 Dose: 12.5 mg Zolpidem Tartrate (Ambien) 5 mg PO HS [facility] Last Admin: 12/11/16 21:55 Dose: 5 mg - Labs Labs: 12/12/16 05:55 12/11/16 05:45 PT 13.5 SECONDS (9.6-11.2) H 12/10/16 15:50 INR 1.30 (0.92-1.08) H 12/10/16 15:50 APTT 26.4 SECONDS (23.3-32.5) 12/10/16 15:50 Assessment and Plan - Assessment and Plan (Free Text) Plan: - Clear for discharge from the surgical stand point - No general surgery intervention at present time
[2016-12-12 08:12] VITALS: PULSE 74
[2016-12-12] MEDS: Pantoprazole 40 mg EC Tab PO SCH (09:01)
--- NOTE | 2016-12-12 09:24 | CP.PCM.DIS ---
Provider - Provider Date of Admission: 12/10/16 19:00 Attending physician: Mark Levin MD Primary care physician: Mark Levin MD Time Spent in preparation of Discharge (in minutes): 35 Diagnosis - Discharge Diagnosis (1) Abdominal wall hematoma Status: Acute (2) Rectus sheath hematoma Status: Acute (3) Asthma attack Status: Acute (4) Troponin level elevated Status: Acute (5) Hypertension Status: Acute (6) Diabetes 1.5, managed as type 2 Status: Acute (7) End-stage renal disease on hemodialysis Status: Acute Hospital Course - Lab Results Lab Results: Most Recent Lab Values WBC 6.2 K/uL (4.8-10.8) 12/12/16 05:55 RBC 2.45 Mil/uL (3.80-5.20) L 12/12/16 05:55 Hgb 8.4 g/dL (12.0-16.0) L 12/12/16 05:55 Hct 25.2 % (34.0-47.0) L 12/12/16 05:55 MCV 102.9 fl (81.0-99.0) H 12/12/16 05:55 MCH 34.3 pg (27.0-31.0) H 12/12/16 05:55 MCHC 33.3 g/dL (33.0-37.0) 12/12/16 05:55 RDW 15.0 % (11.5-14.5) H 12/12/16 05:55 Plt Count 111 K/uL (130-400) L D 12/12/16 05:55 MPV 9.2 fl (7.2-11.7) 12/10/16 15:40 Neut % (Auto) 74.6 % (50.0-75.0) 12/10/16 15:40 Lymph % (Auto) 16.6 % (20.0-40.0) L 12/10/16 15:40 [place] % (Auto) 8.1 % (0.0-10.0) 12/10/16 15:40 Eos % (Auto) 0.3 % (0.0-4.0) 12/10/16 15:40 Baso % (Auto) 0.4 % (0.0-2.0) 12/10/16 15:40 Neut # 4.5 K/uL (1.8-7.0) 12/10/16 15:40 Lymph # 1.0 K/uL (1.0-4.3) 12/10/16 15:40 [place] # 0.5 K/uL (0.0-0.8) 12/10/16 15:40 Eos # 0.0 K/uL (0.0-0.7) 12/10/16 15:40 Baso # 0.0 K/uL (0.0-0.2) 12/10/16 15:40 PT 13.5 SECONDS (9.6-11.2) H 12/10/16 15:50 INR 1.30 (0.92-1.08) H 12/10/16 15:50 APTT 26.4 SECONDS (23.3-32.5) 12/10/16 15:50 Sodium 138 mmol/l (132-148) 12/11/16 05:45 Potassium 4.9 MMOL/L (3.6-5.0) 12/11/16 05:45 Chloride 92 mmol/L (98-107) L 12/11/16 05:45 Carbon Dioxide 28 mmol/L (22-30) 12/11/16 05:45 Anion Gap 23 (10-20) H 12/11/16 05:45 BUN 66 mg/dl (7-17) H 12/11/16 05:45 Creatinine 7.8 mg/dL (0.7-1.2) H* 12/11/16 05:45 Est GFR ( Amer) 6 12/11/16 05:45 Est GFR (Non-Af Amer) 5 12/11/16 05:45 POC Glucose (mg/dL) 245 mg/dL (65-110) H 12/12/16 05:44 Random Glucose 307 mg/dL (65-105) H 12/11/16 05:45 Calcium 9.0 mg/dL (8.4-10.2) 12/11/16 05:45 Total Bilirubin 1.1 mg/dl (0.2-1.3) 12/10/16 15:40 AST 38 U/L (14-36) H 12/10/16 15:40 ALT 20 U/L (9-52) 12/10/16 15:40 Alkaline Phosphatase 128 U/L (38-126) H 12/10/16 15:40 Troponin I 0.2870 ng/mL (0.00-0.120) H* 12/11/16 11:47 Total Protein 7.0 G/DL (6.3-8.2) 12/10/16 15:40 Albumin 3.6 g/dL (3.5-5.0) 12/10/16 15:40 Globulin 3.4 gm/dL (2.2-3.9) 12/10/16 15:40 Albumin/Globulin Ratio 1.1 (1.0-2.1) 12/10/16 15:40 Triglycerides 98 mg/DL (0-149) 12/11/16 05:45 Cholesterol 93 mg/dL (0-199) 12/11/16 05:45 LDL Cholesterol Direct 35 mg/dL (0-129) 12/11/16 05:45 HDL Cholesterol 31 MG/DL (30-70) 12/11/16 05:45 Lipase 241 U/L (23-300) 12/10/16 15:40 Blood Type O POSITIVE 12/10/16 18:50 Antibody Screen Negative 12/10/16 18:50 BBK History Checked Patient has bt 12/10/16 18:50 - Hospital Course Hospital Course: feels well abdominal pain resolved no sob hb stable Discharge Exam - Head Exam Head Exam: ATRAUMATIC, NORMAL INSPECTION - Eye Exam Eye Exam: EOMI, Normal appearance, PERRL Pupil Exam: NORMAL ACCOMODATION, PERRL - GI/Abdominal Exam GI & Abdominal Exam: Normal Bowel Sounds - Rectal Exam Rectal Exam: NORMAL INSPECTION - Neurological Exam Neurological exam: Alert, CN II-XII Intact, Normal Gait, Oriented x3, Reflexes Normal - Psychiatric Exam Psychiatric exam: Normal Affect, Normal Mood - Skin Skin Exam: Dry, Intact, Normal Color, Warm - Additional Findings Additional findings: abnormal troponin probably due to chronic kidney disease--will discus with roof mechanic Discharge Plan - Follow Up Plan Condition: FAIR Disposition: HOME/ ROUTINE Patient education suggested?: Yes Additional Instructions: discharge home today avoid heparin inj in abdominal wall cardiac followup as out pt tylenol for pain Referrals: Mark Levin MD [Primary Care Provider] -
[2016-12-12 10:48] LABS: IRON 84 ug/dL (37-170)
[2016-12-12 12:28] VITALS: BP 107/64; TEMP 98; O2SAT 95
== END 2016-12-12 15:04 | disposition home or self-care (01) | DRG 604 ==
LOC: H.ER 14:38 → H.ERHOLD 19:00 → H.TEL 21:26
PROVIDERS: ADMIT Internal Medicine Pulmonary Disease; ATTEND Internal Medicine Pulmonary Disease
PROC: 5A1D00Z (ICD-10-PCS; principal; 2016-12-11)
DX: S30.1XXA Contusion of abdominal wall, initial encounter (principal); N18.6 End stage renal disease; E11.22 Type 2 diabetes mellitus with diabetic chronic kidney disease; J45.901 Unspecified asthma with (acute) exacerbation; I12.0 Hypertensive chronic kidney disease with stage 5 chronic kidney disease or end stage renal disease; K42.9 Umbilical hernia without obstruction or gangrene; E11.65 Type 2 diabetes mellitus with hyperglycemia; D63.1 Anemia in chronic kidney disease; T45.515A Adverse effect of anticoagulants, initial encounter; I25.10 Atherosclerotic heart disease of native coronary artery without angina pectoris; E78.5 Hyperlipidemia, unspecified; E78.00 Pure hypercholesterolemia, unspecified; Z99.2 Dependence on renal dialysis; Z79.4 Long term (current) use of insulin; Z95.1 Presence of aortocoronary bypass graft; Y93.9 Activity, unspecified; Y92.9 Unspecified place or not applicable; X58.XXXA Exposure to other specified factors, initial encounter